=== PATIENT | male | born 1980 | race Caucasian/White ===

== ENCOUNTER 2017-04-05 15:30 | Emergency (ER) | payer OTHER ==
[~2017-04-05 15:30] MED LIST: AMOXICILLIN875 MG PO; IBUPROFEN800 MG PO; MAGIC MOUTHWASH; NAPROXEN PO; NO MEDICATIONS; PERIDEX480 ML; TYLENOL #3 PO; [UNRECOGNIZED DRUG - CODE] PO
[2017-04-05 16:52] LABS: URINE SOURCE CLEAN CATCH
[2017-04-05 17:00] LABS: URINE APPEARANCE CLEAR; URINE BILIRUBIN NEG (NEG); URINE BLOOD 1+ (NEG); URINE COLOR YELLOW; URINE GLUCOSE NEG (NORM); URINE KETONE NEG (NEG); URINE LEUKOCYTE ESTERASE NEG (NEG); URINE NITRATE NEG (NEG); URINE PROTEIN NEG (NEG)
[2017-04-05 17:04] LABS: MICRO INDICATED? YES
[2017-04-05 17:08] LABS: CULTURE INDICATED? NO; URINE BACTERIA NEG (NEG); URINE WBC 0-2 /[HPF] (0-5)
[2017-04-08 20:18] LABS: CHLAMYDIA TRACH Not Detected (Not Detected); N GONOR Not Detected (Not Detected)
== END 2017-04-05 17:35 | disposition home or self-care (01) ==
LOC: SED 15:30
PROVIDERS: Nurse Practitioner Family
DX: Z20.2 Contact with and (suspected) exposure to infections with a predominantly sexual mode of transmission (principal); F17.210 Nicotine dependence, cigarettes, uncomplicated
CPT/HCPCS: 81003; 87491; 87591; 96372; 99283; J0696